=== PATIENT | female | born 1985 | race Caucasian/White ===

== ENCOUNTER → 2018-08-16 | Outpatient (CLI) | payer OTHER ==
[2018-08-17 03:29] LABS: Anion Gap 8.7 mmol/L (4.00-12.00); Calcium 9.2 mg/dL (8.7-10.3); Carbon Dioxide 22.3 mmol/L (21.6-31.8)
== END | disposition home or self-care (01) ==
LOC: LABWHC1 16:38
PROVIDERS: ATTEND Internal Medicine
DX: I42.9 Cardiomyopathy, unspecified (principal)
CPT/HCPCS: 36415; 80048; 83735; 83880

== ENCOUNTER 2019-06-18 20:13 | Observation (INO) | payer MEDICARE, OTHER ==
[2019-06-18] MEDS ORDERED: KETOROLAC 30 MG/ML 1 ML VIAL IVP STA (20:33)
--- NOTE | 2019-06-18 20:33 | ED ---
Chest Pain HPI - General Stated Complaint: Chest Pain Time Seen by Provider: 06/18/19 20:13 Source: patient, EMS, RN notes reviewed Mode of arrival: EMS - History of Present Illness Initial Comments: This is a 34-year-old female with a history of cardiomyopathy, pacemaker, class III heart failure she states from a previous who presents with complaints the onset of sharp left midsternal chest pain just after 6 PM tonight. She states radiated to both shoulders he states was 9/10 severity. She did call EMS she was given 324 mg aspirin and one nitroglycerin. The pain did go from a 9 to a 7. With nitroglycerin her diastolic blood pressure also dropped significantly. Has rebounded in his backpackers manager to normal at this time. She is not recall anything he may have hurt her chest wall any lifting that she does have a 2-year-old that she has left. No cough fevers chills sweats or other symptoms no nausea no vomiting. MD Complaint: chest pain - Related Data Home Medications Medication Instructions Recorded Confirmed Digoxin [Digitek] 125 mcg PO DAILY 06/18/19 06/18/19 Furosemide [Lasix] 20 mg PO DAILY 06/18/19 06/18/19 Metoprolol Tartrate [Lopressor] 12.5 mg PO DAILY 06/18/19 06/18/19 Potassium Chloride ER [K-Dur 20] 20 meq PO BID 06/18/19 06/18/19 Sacubitril/Valsartan [Entresto 24 1 tab PO DAILY 06/18/19 06/18/19 mg-26 mg Tablet] Allergies Allergy/AdvReac Type Severity Reaction Status Date / Time No Known Allergies Allergy Verified 02/10/14 14:02 Review of Systems ROS Statement: Those systems with pertinent positive or pertinent negative responses have been documented in the HPI. ROS Other: All systems not noted in ROS Statement are negative. EKG Findings - EKG Results: EKG: interpreted by EUGENE (Pacemaker rhythm of 82. Interval 142 QRS 154 QT/QTC 434/507. Single PVC noted.) Past Medical History Past Medical History: No Reported History History of Any Multi-Drug Resistant Organisms: None Reported Past Anesthesia/Blood Transfusion Reactions: No Reported Reaction Past Psychological History: No Psychological Hx Reported - Past Family History Mother Family Medical History: Diabetes Mellitus General Exam - General Exam Comments Initial Comments: This is a well-developed well-nourished awake alert oriented 3 female General appearance: alert, in no apparent distress Head exam: Present: atraumatic, normocephalic, normal inspection Eye exam: Present: normal appearance, PERRL, EOMI. Absent: scleral icterus, conjunctival injection, periorbital swelling ENT exam: Present: normal exam, mucous membranes moist Neck exam: Present: normal inspection. Absent: tenderness, meningismus, lymphadenopathy Respiratory exam: Present: normal lung sounds bilaterally, chest wall tenderness (Reproducible tenderness palpation along the left costosternal margins with no step-off or crepitation. Pacemaker battery is located in the left upper chest wall. The area appears be within normal limits no evidence of any infectious process). Absent: respiratory distress, wheezes, rales, rhonchi, stridor Cardiovascular Exam: Present: regular rate, normal rhythm, normal heart sounds, other (Occasional extrasystole). Absent: systolic murmur, diastolic murmur, rubs, gallop, clicks GI/Abdominal exam: Present: soft, normal bowel sounds. Absent: distended, tenderness, guarding, rebound, rigid Extremities exam: Present: normal inspection, full ROM, normal capillary refill. Absent: tenderness, pedal edema, joint swelling, calf tenderness Back exam: Present: normal inspection Neurological exam: Present: alert, oriented X3, CN II-XII intact Psychiatric exam: Present: normal affect, normal mood Skin exam: Present: warm, dry, intact, normal color. Absent: rash Course Vital Signs 06/18/19 06/18/19 06/18/19 20:30 21:31 22:15 Temperature 98.8 F Pulse Rate 83 79 83 Respiratory 16 16 16 Rate Blood Pressure 140/50 119/109 135/83 O2 Sat by Pulse 99 98 98 Oximetry - Reevaluation(s) Reevaluation #1: 06/18/19 22:51 Was given IV Toradol and got minimal to no relief but later did respond to some legal nitroglycerin with marked improvement in her chest pain. Chest Pain MDM - MDM I did review the imaging and report no acute findings. Patient did respond to nitroglycerin with respect to pain control her initial workup including enzymes was unremarkable due to the patient response patient will be admitted for further evaluation and consultation by cardiology. Case is discussed with Isabelle holguin for Dr. Lenz Critical Care Time Critical Care Time: Yes Critical Care Time: 31 minutes of critical care time which includes initial presentation with history physical labs x-rays multiple reevaluation the patient. Discussed with the patient family regarding the findings discussed with the admitting service Dr. Lenz admission orders and documentation of the above Disposition Clinical Impression: Unstable angina pectoris, Chest pain, Cardiomyopathy Disposition: ADMITTED IP TO THIS [facility] Condition: Fair Referrals: None,Stated [Primary Care Provider] - 1-2 days
[2019-06-18 21:37] LABS: Basophils # (A) 0.1 k/uL (0-0.2); Basophils % (A) 1 %; Eosinophils # (A) 0.3 k/uL (0-0.7); Eosinophils % (A) 5 %; HCT 35.1 % (34.0-46.0); Lymphocytes # (A) 1.7 k/uL (1.0-4.8); Lymphocytes % (A) 26 %; MCH 31.6 pg (25.0-35.0); MCHC 34.2 g/dL (31.0-37.0); MCV 92.4 fL (80.0-100.0); Mean Platelet Volume 7.2; Monocytes # (A) 0.4 k/uL (0-1.0); Monocytes % (A) 6 %; Neutrophils % (A) 60 %; Platelet Count 248 k/uL (150-450); RDW 14.3 % (11.5-15.5); WBC 6.6 k/uL (3.8-10.6)
[2019-06-18 21:43] LABS: Albumin 4.1 g/dL (3.5-5.0); Calcium 9.3 mg/dL (8.4-10.2); Magnesium 2.2 mg/dL (1.6-2.3); Potassium 3.9 mmol/L (3.5-5.1); Total Bilirubin 0.3 mg/dL (0.2-1.3); Total Protein 7.1 g/dL (6.3-8.2)
[2019-06-18 21:50] LABS: INR 0.9 (<1.2)
[2019-06-18 21:51] LABS: D-Dimer 0.31 mg/L FEU (<0.60); Partial Thromboplastin Time 25.7 sec (22.0-30.0); Prothrombin Time 10.1 sec (9.0-12.0)
--- NOTE | 2019-06-18 22:05 | XR ---
EXAMINATION TYPE: XR chest 2V DATE OF EXAM: 06/18/2019 COMPARISON: 01/21/2009 HISTORY: Chest pain TECHNIQUE: Frontal and lateral views of the chest are obtained. FINDINGS: Heart and mediastinum are normal. Lungs are clear. Diaphragm is normal. There is a left ax illary pacemaker. There are chest leads. Bony thorax is intact. There is some mild developmental ante rior wedging in the mid thoracic spine. IMPRESSION: No active cardiopulmonary disease. Normal heart. No change.
[2019-06-18] MEDS ORDERED: NITROGLYCERIN SL TABS 0.4 MG TAB SUBLINGUAL STA (22:07)
[2019-06-18] MEDS ORDERED: NITROGLYCERIN SL TABS 0.4 MG TAB SUBLINGUAL PRN (23:05)
[2019-06-18] MEDS ORDERED: HEPARIN SODIUM,PORCINE 5,000 UNIT/ML 1 ML VIAL IV ONE (23:05)
[2019-06-18] MEDS ORDERED: HEPARIN SOD,PORK IN 0.45% NACL 25,000 UNIT in 0.45% NACL 1 250ML.BAG IV SCH (23:15)
[2019-06-18] MEDS: SODIUM CHLORIDE 0.9% 1,000 ML IV SCH (23:22)
[2019-06-19] MEDS: MORPHINE SULFATE 4 MG/ML SYRINGE IV PRN ×2 (00:16→06:38)
[2019-06-19] MEDS: NITROGLYCERIN OINT 1 INCH/GM PACKET TOPICAL SCH ×2 (00:52→06:18)
[2019-06-19 07:05] LABS: Cholesterol 176 mg/dL (<200); HDL Cholesterol 85 mg/dL (40-60); LDL Cholesterol,Calculated 84 mg/dL (0-99); Triglycerides 37 mg/dL (<150)
[2019-06-19] MEDS ORDERED: ASPIRIN 325 MG TAB PO SCH (09:00)
[2019-06-19] MEDS ORDERED: METOPROLOL TARTRATE 12.5 MG TAB PO SCH (09:00)
--- NOTE | 2019-06-19 09:11 | CONS ---
CONSULTATION Mrs. Villa is a 34-year-old female with known history of severe nonischemic cardiomyopathy that appears to be related to cardiomyopathy. Apparently, she had initial in 2002 and she had mild cardiomyopathy afterward, had another of in 2012, had an ICD placed in 2014, subsequent in 2016. She is followed by Dr. Ayers at [facility] and has seen him recently, underwent a stress test recently that revealed no evidence of inducible ischemia. Yesterday while sitting at the table, she had an episode of discomfort, sharp on the left side of the chest radiating to her back with some dyspnea. She had no associated palpitation or syncope. Because of that, she came into the emergency room and subsequently admitted. Patient has no clear PND, orthopnea. She has some peripheral edema at times. She has some dyspnea on exertion. She had no syncope and no discharge from her ICD. Her coronary risk factor is negative for smoking. She is nondiabetic. MEDICATION: Include Entresto 24-26 mg daily, potassium 10 mEq daily, Lopressor 12.5 mg daily, Lasix 20 mg daily, and digoxin 0.125 mg daily. REVIEW OF SYSTEMS: RESPIRATORY SYSTEM: She had dyspnea on exertion. No recent wheezing or cough. GI SYSTEM: No recent GI bleeding. No peptic ulcer disease. SYSTEM: No dysuria or hematuria. NERVOUS SYSTEM: No stroke or seizure. PHYSICAL EXAMINATION: A 34-year-old female, alert, oriented, in no apparent distress. Blood pressure 112/70 with a heart rate in the 70s. HEAD: Normocephalic. EYES: Sclerae anicteric. NECK: Good upstroke, no bruit, no venous distention. LUNGS: Clear to auscultation. HEART: Regular rate and rhythm. S1, S2. No S3 with systolic murmur heard at the base, 1/6, no diastolic murmur, no rub. ABDOMEN: Soft, nontender. Positive bowel sounds, no organomegaly. EXTREMITIES: No edema, intact pulses. LAB DATA: Revealed troponin less than 0.012 for 2 samples, cholesterol 176, LDL of 84, BUN and creatinine 12 and 1.05. D-dimer 0.31, hemoglobin of 12.0. EKG revealed a sinus mechanism, rate of 82 with paced ventricular rhythm and rare PVCs. Chest x-ray shows no infiltrate. IMPRESSION: 1. Chest discomfort, atypical for ischemic heart disease, probably noncardiac. 2. History of nonischemic cardiomyopathy probably cardiomyopathy, status post ICD, probable Bi-V pacing. RECOMMENDATION: From the cardiac standpoint, I will stop the heparin. I will obtain the results of her prior workup and stress test. I will obtain echocardiogram with Doppler. Increase her level activity and if she remains stable, I would expect she should be able to be discharged home and follow with her primary systems program manager. Thank you for this consult. Will follow with you. MILEY / IJN: [id number] /
[2019-06-19] MEDS: ASPIRIN 81 MG PO SCH (09:38)
[2019-06-19] MEDS: METOPROLOL TARTRATE 12.5 MG TAB PO SCH ×2 (09:38→20:39)
[2019-06-19] MEDS: FUROSEMIDE 20 MG TAB PO SCH (09:39)
[2019-06-19] MEDS: POTASSIUM CHLORIDE ER 20 MEQ TAB.ER PO SCH ×2 (09:39→20:39)
[2019-06-19] MEDS: DIGOXIN 125 MCG TAB PO SCH (09:40)
[2019-06-19] MEDS: SACUBITRIL/VALSARTAN 24 MG-26 MG TABLET PO SCH (09:40)
--- NOTE | 2019-06-19 11:40 | ECHOF ---
Referral Reason:cm MEASUREMENTS -------- HEIGHT: 165.1 cm WEIGHT: 108.0 kg BP: 120/60 IVSd: 1.1 cm (0.6 - 1.1) LVIDd: 4.3 cm (3.9 - 5.3) LVPWd: 1.2 cm (0.6 - 1.1) IVSs: 1.2 cm LVIDs: 3.5 cm LVPWs: 1.6 cm LA Diam: 4.4 cm (2.7 - 3.8) LAESV Index (A-L): 32.31 ml/m Ao Diam: 2.6 cm (2.0 - 3.7) AV Cusp: 1.7 cm (1.5 - 2.6) LA Diam: 3.3 cm (2.7 - 3.8) MV EXCURSION: 19.436 mm (> 18.000) MV EF SLOPE: 85 mm/s (70 - 150) EPSS: 0.5 cm MV E Darío: 0.65 m/s MV DecT: 148 ms MV A Darío: 0.46 m/s MV E/A Ratio: 1.43 RAP: 5.00 mmHg RVSP: 25.25 mmHg TAPSE: 2.19 cm FINDINGS -------- Sinus rhythm. Paced rhythm. Pacerwire seen in RV and RA. This was a technically good study. The left ventricular size is normal. Left ventricular wall thickness is normal. There is moderate global hypokinesis of LV . Overall left ventricular systolic function is moderately impaired with, an EF between 35 - 40 %. Indeterminate The right ventricle is normal in size. LA is midly dilated 29-33ml/m2. The right atrial size is normal. The aortic valve is trileaflet, and appears structurally normal. No aortic stenosis or regurgitation. The mitral valve is normal. Mild mitral regurgitation is present. Mild tricuspid regurgitation present. There is no evidence of pulmonary hypertension. The right v entricular systolic pressure, as measured by Doppler, is 25.25mmHg. There is no pulmonic regurgitation present. The aortic root size is normal. There is no pericardial effusion. CONCLUSIONS -------- 1. Sinus rhythm. 2. Paced rhythm. 3. Pacerwire seen in RV and RA. 4. This was a technically good study. 5. The left ventricular size is normal. 6. Left ventricular wall thickness is normal. 7. There is moderate global hypokinesis of LV . 8. Overall left ventricular systolic function is moderately impaired with, an EF between 35 - 40 %. 9. Indeterminate 10. LA is midly dilated 29-33ml/m2. 11. The aortic valve is trileaflet, and appears structurally normal. No aortic stenosis or regurgitat ion. 12. The mitral valve is normal. 13. Mild mitral regurgitation is present. 14. Mild tricuspid regurgitation present. 15. There is no evidence of pulmonary hypertension. 16. There is no pulmonic regurgitation present. 17. The aortic root size is normal. 18. There is no pericardial effusion. BARREL LATHE OPERATOR: Isaura Bose RDCS
[2019-06-19] MEDS ORDERED: HYDROcodone/APAP 7.5-325MG 1 EACH TAB PO PRN (14:31)
[2019-06-19] MEDS ORDERED: ALPRAZolam 0.5 MG TAB PO PRN (14:32)
--- NOTE | 2019-06-19 14:33 | P.HPIM ---
History of Present Illness This is a pleasant 34 years old female with past medical history of cardiomyopathy status post AICD/pacemaker and follow-up with Dr. Escobedo her biological photographer at [facility]. She presents because of chest pain, she states that the chest pain is central radiating through the back and to the neck especially on the right side, felt like sharp and sick wheezing with no precipitating or relieving factors was about 9/10 in severity coming down to 5/10 when they gave her nitroglycerin the ambulance. Associated with some sweating and dyspnea. No vomiting, no heartburn, no change in urine or bowel habits, no abdominal pain, She has chronic headache for a few months. No weakness or abnormal sensation. She denies smoking or illicit drugs, she drinks alcohol occasionally. She denies stress in her life Patient declines to do fitness test stated that she has tubal ligation. Risks, benefits and alternatives are explained. She does not have family doctor and she follow up with Dr. Dorothy Escobedo biological photographer at [facility] Vitals are stable. Labs including CBC, BMP, liver enzymes and INR are within normal limits, serial troponins are negative, cholesterol is not elevated, digoxin level less than 0.4 Review of Systems Review of systems CONSTITUTIONAL: No fever, no malaise, no fatigue. HEENT: No recent visual problems or hearing problems. Denied any sore throat. CARDIOVASCULAR: No orthopnea, PND, no palpitations, no syncope. PULMONARY: no cough, no hemoptysis. GASTROINTESTINAL: No diarrhea, no nausea, no vomiting, no abdominal pain. Normoactive bowel sounds. NEUROLOGICAL: N no weakness, no numbness. HEMATOLOGICAL: Denies any bleeding or petechiae. GENITOURINARY: Denies any burning micturition, frequency, or urgency. MUSCULOSKELETAL/RHEUMATOLOGICAL: Denies any joint pain, swelling, or any muscle pain. ENDOCRINE: Denies any polyuria or polydipsia. Past Medical History Past Medical History: No Reported History Additional Past Medical History / Comment(s): class 3 HF, Cardiomyopathy, AICD History of Any Multi-Drug Resistant Organisms: None Reported Past Surgical History: Pacemaker Additional Past Surgical History / Comment(s): 2 C sections, AICD 2014 Past Anesthesia/Blood Transfusion Reactions: No Reported Reaction Type of Cardiac Device: AICD Device Placement Date:: 2014 Smoking Status: Never smoker - Past Family History Mother Family Medical History: Diabetes Mellitus Additional Family Medical History / Comment(s): Brain anyresum Father Family Medical History: No Reported History Additional Family Medical History / Comment(s): from PE Medications and Allergies Home Medications Medication Instructions Recorded Confirmed Type Digoxin [Digitek] 125 mcg PO DAILY 06/18/19 06/18/19 History Furosemide [Lasix] 20 mg PO DAILY 06/18/19 06/18/19 History Metoprolol Tartrate [Lopressor] 12.5 mg PO DAILY 06/18/19 06/18/19 History Potassium Chloride ER [K-Dur 20] 20 meq PO BID 06/18/19 06/18/19 History Sacubitril/Valsartan [Entresto 24 1 tab PO DAILY 06/18/19 06/18/19 History mg-26 mg Tablet] Allergies Allergy/AdvReac Type Severity Reaction Status Date / Time No Known Allergies Allergy Verified 06/18/19 23:52 Physical Exam Vitals: Vital Signs Temp Pulse Pulse Resp BP BP Pulse Ox 06/19/19 12:00 97.6 F 72 16 92/58 97 06/19/19 09:43 58 L 112/74 97 06/19/19 08:00 16 06/19/19 07:32 97 06/19/19 07:08 97.7 F 61 16 96/61 97 06/19/19 03:54 18 06/19/19 03:53 97.6 F 74 17 112/70 98 06/19/19 00:00 98.6 F 66 18 126/77 97 06/18/19 23:30 98 F 73 18 137/91 98 06/18/19 22:15 83 16 135/83 98 06/18/19 21:31 79 16 119/109 98 06/18/19 20:30 98.8 F 83 16 140/50 99 Intake and Output 06/18/19 06/19/19 06/19/19 22:59 06:59 14:59 Intake Total 240 Balance 240 Intake: Oral 240 Other: # Voids 1 Weight 108.363 kg GENERAL: The patient is alert and oriented x3, not in any acute distress. Well developed, well nourished. HEENT: Pupils are round and equally reacting to light. EOMI. No scleral icterus. No conjunctival pallor. Normocephalic, atraumatic. No pharyngeal erythema. No thyromegaly. CARDIOVASCULAR: S1 and S2 present. No murmurs, rubs, or gallops. PULMONARY: Chest is clear to auscultation, no wheezing or crackles. ABDOMEN: Soft, nontender, nondistended, normoactive bowel sounds. No palpable organomegaly. MUSCULOSKELETAL: No joint swelling or deformity. EXTREMITIES: No cyanosis, clubbing, or pedal edema. NEUROLOGICAL: Gross neurological examination did not reveal any focal deficits. SKIN: No rashes. No petechiae Results CBC & Chem 7: 06/18/19 20:25 06/18/19 20:25 Labs: Abnormal Lab Results - Last 24 Hours (Table) 06/18/19 06/19/19 06/19/19 Range/Units 20:25 05:33 05:33 APTT 102.6 H* (22.0-30.0) sec Creatinine 1.05 H (0.52-1.04) mg/dL HDL Cholesterol 85 H (40-60) mg/dL Assessment and Plan Assessment: Chest pain, nonspecific. Wool Scourer evaluated the patient for possible cardiac causes. Chronic cardiomyopathy status post IACD and pacemaker Plan: This is a pleasant 54 years old female who presents with chest pain. Wool Scourer evaluated the patient. Follow-up echocardiogram results. Pain management. Monitor vitals. Wool Scourer will obtain records for her previous stress test Labs and medication were reviewed.. Continue same treatment. Continue with symptomatic treatment. Resume home medication. Monitor lytes and vitals. DVT and GI prophylaxis. Further recommendations of the clinical course of the patient DVT prophylaxis: Subcutaneous Lovenox GI Prophylaxis: Protonix Prognosis is guarded
[2019-06-19] MEDS: PANTOPRAZOLE 40 MG/10 ML VIAL IVP SCH (15:00)
[2019-06-19] MEDS: ENOXAPARIN 40 MG/0.4 ML SYRINGE SQ SCH (15:01)
[2019-06-19] MEDS: traMADol 50 MG TAB PO PRN ×2 (15:48→20:39)
[2019-06-19] MEDS ORDERED: LIDOCAINE 5% PATCH TOPICAL SCH (16:00)
[2019-06-19] MEDS: SODIUM CHLORIDE 0.9% 1,000 ML IV SCH (23:36)
[2019-06-20] MEDS: traMADol 50 MG TAB PO PRN ×2 (03:19→13:28)
[2019-06-20 07:39] VITALS: RESP 16
[2019-06-20] MEDS ORDERED: BUTALB/APAP/CAFF 50-325-40MG TAB PO PRN (08:31)
[2019-06-20] MEDS: ENOXAPARIN 40 MG/0.4 ML SYRINGE SQ SCH (08:41)
[2019-06-20] MEDS: METOPROLOL TARTRATE 12.5 MG TAB PO SCH (08:41)
[2019-06-20] MEDS: SACUBITRIL/VALSARTAN 24 MG-26 MG TABLET PO SCH (08:41)
[2019-06-20] MEDS: PANTOPRAZOLE 40 MG/10 ML VIAL IVP SCH (08:41)
[2019-06-20] MEDS: FUROSEMIDE 20 MG TAB PO SCH (08:43)
[2019-06-20] MEDS: DIGOXIN 125 MCG TAB PO SCH (08:43)
[2019-06-20] MEDS: POTASSIUM CHLORIDE ER 20 MEQ TAB.ER PO SCH (08:43)
[2019-06-20] MEDS: ASPIRIN 81 MG PO SCH (08:43)
--- NOTE | 2019-06-20 11:39 | PN ---
PROGRESS NOTE Ms. Villa is a 34-year-old female with a history of severe nonischemic cardiomyopathy who presented with chest discomfort that had atypical features for ischemic heart disease. She has an ICD implanted. She is doing well this morning. Her breathing is stable. She is denying any chest pain. No dizziness or palpitation. She is ambulating without difficulty. She continues to be on aspirin once a day, digoxin 0.125 mg daily, Lasix 20 mg daily, metoprolol tartrate 12.5 mg twice a day and Entresto 24-26 mg twice a day. PHYSICAL EXAMINATION: Blood pressure 109/70 with the heart rate in the 60s. LUNGS: Clear. HEART: Regular rate and rhythm. S1, S2. No S3. No rub. ABDOMEN: Soft, nontender. EXTREMITIES: No edema. She had an echocardiogram performed yesterday that revealed an impairment in the ejection fraction with an ejection fraction estimated at 35% to 40%. IMPRESSION: 1. Symptoms of chest pain, atypical for ischemic heart disease. 2. Nonischemic cardiomyopathy. 3. Status post ICD implantation. RECOMMENDATION: From the cardiac standpoint, she is stable to be discharged home to follow up with her primary wire annealer. MMODL / IJN: [id number] /
[2019-06-20 11:48] VITALS: BP 92/55; PULSE 60; TEMP 98.2
--- NOTE | 2019-06-20 12:10 | P.DS ---
Providers Date of admission: 06/18/19 23:07 Attending physician: Jg Lenz Consults: 06/18/19 23:07 Consult Physician Urgent Consulting Provider: Susana Kohler Consult Reason/Comments: Chest pain, angina Do you want consulting provider notified?: Yes, Notify in am Primary care physician: Stated None Hospital Course: Diagnoses: Chest pain, nonspecific. Cardiac causes ruled out by staging technician, d-dimer is negative Chronic cardiomyopathy status post IACD and pacemaker Chronic headache Course: This is a pleasant 34 years old female with past medical history of cardiomyopathy status post AICD/pacemaker and follow-up with Dr. Dorothy Bowers her staging technician at [facility]. She presents because of chest pain, she states that the chest pain is central radiating through the back and to the neck especially on the right side, felt like sharp and sick wheezing with no precipitating or relieving factors was about 9/10 in severity coming down to 5/10 when they gave her nitroglycerin the ambulance. Patient has been evaluated by staging technician who cleared her for discharge, her d-dimer was 0.3 which is within normal limits, because patient was not hypoxic or tachycardic. She is saturating 99% on room air. And heart rate is 60 on the day of discharge. Patient was treated symptomatically with Ultram and her chest pain is resolved on the day of discharge as she rated as 0/10. She still have headache which is partially resolved with 1 dose of fiorocet. Patient states that and it is chronic and she denies dizziness, no blurred vision or difficulty swallowing, no weakness or abnormal sensation, no anesthesia or paresthesia, no urinary or bladder incontinence, no gait difficulty. Also patient has headache for 4 months which is a stable. Since the pain is chronic, we recommend neurological evaluation which can be done as an outpatient. Contact information for the neurologist is provided for the patient and she states that she will call and make appointment. pt is informed of her pain gets worse or she develops any other symptoms like the ones mentioned above then she called 911 on come to emergency room and she verbalized understanding and acceptance. Risks, benefits and alternatives are explained. She does not have family doctor and she follow up with Dr. Dorothy Escobedo staging technician at [facility] Patient was cleared for discharge by staging technician Problems and management plan were discussed with the patient and he verbalized understanding and acceptance Patient was found stable and can be discharged home however he needs follow-up as an outpatient. Patient was instructed to follow up with PCP within one week and patient agrees. Patient states she does not have PCP, contact information for Dr. Lock is provided for the patient and patient agrees with that but she wants to call make her on appointments. Also patient wants to make her own appointments with the neurologist. Gen: patient is a AAOx3, no distress CVS: S1-S2, RRR, no murmur Lungs: B/L CTA, no wheezing Abdomen: soft, no distention, no tenderness, positive bowel sounds Extremity: no leg edema or induration Time spent more than 35 minutes Patient Condition at Discharge: Fair Plan - Discharge Summary New Discharge Prescriptions: New Nitroglycerin Sl Tabs [Nitrostat] 0.4 mg SUBLINGUAL Q5M PRN #20 tab PRN Reason: Chest Pain Pantoprazole Sodium [Protonix] 40 mg PO DAILY #21 tablet. traMADol HCl [Ultram] 50 mg PO QID PRN #8 tab PRN Reason: Pain Continue Potassium Chloride ER [K-Dur 20] 20 meq PO BID Furosemide [Lasix] 20 mg PO DAILY Metoprolol Tartrate [Lopressor] 12.5 mg PO DAILY Digoxin [Digitek] 125 mcg PO DAILY Sacubitril/Valsartan [Entresto 24 mg-26 mg Tablet] 1 tab PO DAILY Discharge Medication List Digoxin [Digitek] 125 mcg PO DAILY 06/18/19 [History] Furosemide [Lasix] 20 mg PO DAILY 06/18/19 [History] Metoprolol Tartrate [Lopressor] 12.5 mg PO DAILY 06/18/19 [History] Potassium Chloride ER [K-Dur 20] 20 meq PO BID 06/18/19 [History] Sacubitril/Valsartan [Entresto 24 mg-26 mg Tablet] 1 tab PO DAILY 06/18/19 [History] Nitroglycerin Sl Tabs [Nitrostat] 0.4 mg SUBLINGUAL Q5M PRN #20 tab 06/20/19 [Rx] Pantoprazole Sodium [Protonix] 40 mg PO DAILY #21 tablet. 06/20/19 [Rx] traMADol HCl [Ultram] 50 mg PO QID PRN #8 tab 06/20/19 [Rx] Follow up Appointment(s)/Referral(s): None,Stated [Primary Care Provider] - 1-2 days Patient Instructions/Handouts: Chest Pain (DC) Activity/Diet/Wound Care/Special Instructions: patient is to follow up with primary staging technician Dr. Bowers as an outpatient. Also follow-up with your primary care doctor within 1 week Cardiac diet Activities Limited till you see your doctor
== END 2019-06-20 13:51 | disposition home or self-care (01) ==
LOC: EC 20:13 → 1SOBS 23:07
PROVIDERS: ADMIT Internal Medicine; ATTEND Internal Medicine
DX: R07.89 Other chest pain (principal); I42.9 Cardiomyopathy, unspecified; Z95.810 Presence of automatic (implantable) cardiac defibrillator; R51 Headache; R06.2 Wheezing; R06.00 Dyspnea, unspecified; R61 Generalized hyperhidrosis; I50.9 Heart failure, unspecified; Z79.899 Other long term (current) drug therapy; Z83.3 Family history of diabetes mellitus
CPT/HCPCS: 36415; 71046; 80053; 80061; 80162; 82550; 83735; 83880; 84484; 85025; 85379; 85610; 85730; 93005; 93306; 94760; 96365; 96366; 96372; 96375; 96376; 99291